=== PATIENT | female | born 1970 | race Caucasian/White ===

== ENCOUNTER 2023-06-27 10:05 | Inpatient (IN) | payer BC, OTHER ==
[~2023-06-27] VITALS: Ht 152.4 cm; Wt 79.4 kg
[2023-06-27 11:30] LABS: Urine Bacteria NONE SEEN /hpf (None Seen); Urine Blood Negative /uL (Negative); Urine Clarity Clear (Clear); Urine Mucus FEW (None Seen); Urine Protein, UAD Negative (Negative); Urine Urobilinogen Normal (Negative); Urine WBC 1 /hpf (0 - 5); Urine pH 5.5 (5.0-8.0)
[2023-06-27] MEDS: HYDROmorphone HCL 2 MG/ML VL/or syr IV ONE (11:30)
[2023-06-27 11:34] LABS: Urine Color STRAW (Yellow)
[2023-06-27 12:01] LABS: Basophils # (auto) 0 10 ^3/uL (0-0.2); Basophils % (auto) 0.6 % (0.0-2.0); Eosinophils # (auto) 0.1 10 ^3/uL (0-0.8); Eosinophils % (auto) 2.1 % (0.0-7.0); Hematocrit 40.6 % (36.0-46.0); Hemoglobin 13.5 g/dL (12.2-16.2); Lymphocytes # (auto) 1.4 10 ^3/uL (0.4-5.4); Lymphocytes % (auto) 27.2 % (10.0-50.0); Mean Corpuscular Hemoglobin 30.1 pg (28.0-32.0); Mean Corpuscular Hgb Conc. 33.3 g/dL (32.0-36.0); Mean Corpuscular Volume 90.4 fL (80.0-100.0); Monocytes # (auto) 0.4 10 ^3/uL (0-1.3); Monocytes % (auto) 7.3 % (0.0-12.0); Neutrophils # (auto) 3.3 10 ^3/uL (1.6-8.6); Neutrophils % (auto) 62.8 % (37.0-80.0); Nucleated Red Blood Cells % 0.1 %; Red Blood Cells 4.49 10^6/uL (4.0-5.20); White Blood Cell 5.3 10^3/uL (4.4-10.8)
[2023-06-27 12:13] LABS: INR 1.02 (0.9-1.15); Prothrombin Time 10.7 sec (9.3-11.8)
[2023-06-27 12:17] LABS: Alanine Aminotransferase 18 U/L (7-40); Albumin 4.5 g/dL (3.2-4.8); Alkaline Phosphatase 87 U/L (46-116); Anion Gap 7 (5-15); Aspartate Aminotransferase 10 U/L (13-40); BUN/Creatinine Ratio 10.5 (10.0-20.0); Blood Urea Nitrogen 8 mg/dL (9-23); Calcium 10.1 mg/dL (8.7-10.4); Carbon Dioxide 26 mmol/L (20-30); Chloride 105 mmol/L (98-107); Glucose 91 mg/dL (74-106); Lipase 38 U/L (12-53); Potassium 3.9 mmol/L (3.5-5.1); Sodium 138 mmol/L (136-145)
[2023-06-27 12:18] LABS: Bilirubin, Total 0.6 mg/dL (0.2-1.0); Total Protein 6.8 g/dL (5.7-8.2)
[2023-06-27] MEDS ORDERED: CYCL-611 PO (17:08)
[2023-06-27] MEDS ORDERED: MORPHINE SULFATE INJ 2 MG/ml SYRG IV PRN (17:15)
[2023-06-27] MEDS ORDERED: ONDANSETRON HCL 4 MG/2 ML VIAL IV PRN (17:15)
[2023-06-27 17:22] LABS: Triglycerides 88 mg/dL (< 150)
[2023-06-27 17:23] LABS: LDL Cholesterol 111 mg/dL (< 100)
[2023-06-27 17:24] LABS: Cholesterol 173 mg/dL (< 200); HDL Cholesterol 56 mg/dL (40-59)
[2023-06-27] MEDS ORDERED: PIPERACILLIN-TAZO 4.5GM 100 ML IV SCH (18:00)
[2023-06-27] MEDS: SODIUM CHLORIDE 0.9% 1,000 ML IV SCH (20:05)
[2023-06-27] MEDS: cefTRIAXone 1GM/50ML D5W 50 ML IV ONE (20:18)
[2023-06-27] MEDS: PANTOPRAZOLE 40 MG/10 ML VIAL INJ IV ONE (20:18)
[2023-06-27] MEDS: PIPERACILLIN-TAZO 4.5GM 100 ML IV ONE (20:34)
[2023-06-27] MEDS: ONDANSETRON HCL 4 MG/2 ML VIAL IV ONE (21:36)
[2023-06-27] MEDS: CYCLOBENZAPRINE HCL 10 MG TAB PO SCH (21:39)
[2023-06-28] VITALS (8 sets, daily range): BP systolic 95–119; BP diastolic 54–88; PULSE 64–77; RESP 16–20; TEMP 97.6–98.4; O2SAT 94–98
[2023-06-28] MEDS: HYDROcodone-ACET 5/325MG TAB PO PRN (01:17)
[2023-06-28] MEDS: PIPERACILLIN-TAZOB 3.375GM 100 ML IV SCH (04:57)
[2023-06-28 09:05] LABS: Basophils # (auto) 0 10 ^3/uL (0-0.2); Basophils % (auto) 0.7 % (0.0-2.0); Eosinophils # (auto) 0.2 10 ^3/uL (0-0.8); Eosinophils % (auto) 3.6 % (0.0-7.0); Hematocrit 38.5 % (36.0-46.0); Hemoglobin 12.6 g/dL (12.2-16.2); Lymphocytes # (auto) 1.9 10 ^3/uL (0.4-5.4); Lymphocytes % (auto) 30.5 % (10.0-50.0); Mean Corpuscular Hemoglobin 29.3 pg (28.0-32.0); Mean Corpuscular Hgb Conc. 32.7 g/dL (32.0-36.0); Mean Corpuscular Volume 89.5 fL (80.0-100.0); Monocytes # (auto) 0.5 10 ^3/uL (0-1.3); Monocytes % (auto) 8.6 % (0.0-12.0); Neutrophils # (auto) 3.5 10 ^3/uL (1.6-8.6); Neutrophils % (auto) 56.6 % (37.0-80.0); Nucleated Red Blood Cells % 0.1 %; White Blood Cell 6.1 10^3/uL (4.4-10.8)
[2023-06-28 09:35] LABS: Alanine Aminotransferase 14 U/L (7-40); Alkaline Phosphatase 75 U/L (46-116); Anion Gap 2 (5-15); Aspartate Aminotransferase 11 U/L (13-40); BUN/Creatinine Ratio 9.5 (10.0-20.0); Bilirubin, Total 0.4 mg/dL (0.2-1.0); Blood Urea Nitrogen 7 mg/dL (9-23); Carbon Dioxide 28 mmol/L (20-30); Chloride 109 mmol/L (98-107); Glucose 104 mg/dL (74-106); Potassium 3.4 mmol/L (3.5-5.1); Sodium 139 mmol/L (136-145)
[2023-06-28] MEDS: PANTOPRAZOLE 40 MG/10 ML VIAL INJ IV SCH (10:15)
[2023-06-28] MEDS ORDERED: POTASSIUM CHLORIDE 40 MEQ, LIDOCAINE 1% (LOCAL ANESTH.) 4 ML in SODIUM CHL 0.9% 250 ML IV ONE (15:00)
[2023-06-28] MEDS: POTASSIUM CHLORIDE 40 MEQ, LIDOCAINE 1% (LOCAL ANESTH.) 4 ML in SODIUM CHL 0.9% 250 ML IV ONE (15:15)
[2023-06-28] MEDS: ACETAMINOPHEN 325 MG TAB PO PRN (21:33)
[2023-06-29] VITALS (7 sets, daily range): BP systolic 105–123; BP diastolic 52–75; PULSE 52–78; RESP 16–20; TEMP 97.6–98.3; O2SAT 94–98
[2023-06-29 05:25] LABS: Basophils # (auto) 0 10 ^3/uL (0-0.2); Basophils % (auto) 0.6 % (0.0-2.0); Eosinophils # (auto) 0.2 10 ^3/uL (0-0.8); Eosinophils % (auto) 4.1 % (0.0-7.0); Hematocrit 39.2 % (36.0-46.0); Lymphocytes # (auto) 1.6 10 ^3/uL (0.4-5.4); Lymphocytes % (auto) 35.7 % (10.0-50.0); Mean Corpuscular Hemoglobin 29.8 pg (28.0-32.0); Mean Corpuscular Volume 90.4 fL (80.0-100.0); Monocytes # (auto) 0.4 10 ^3/uL (0-1.3); Monocytes % (auto) 8.1 % (0.0-12.0); Neutrophils # (auto) 2.3 10 ^3/uL (1.6-8.6); Neutrophils % (auto) 51.5 % (37.0-80.0); Red Blood Cells 4.34 10^6/uL (4.0-5.20); Red Cell Distribution Width 14.7 % (11.8-14.3); White Blood Cell 4.6 10^3/uL (4.4-10.8)
[2023-06-29 05:48] LABS: Alanine Aminotransferase 12 U/L (7-40); Albumin 3.7 g/dL (3.2-4.8); Alkaline Phosphatase 71 U/L (46-116); Anion Gap 6 (5-15); Aspartate Aminotransferase 9 U/L (13-40); BUN/Creatinine Ratio 7.3 (10.0-20.0); Bilirubin, Total 0.7 mg/dL (0.2-1.0); Blood Urea Nitrogen 6 mg/dL (9-23); Calcium 9.2 mg/dL (8.7-10.4); Carbon Dioxide 25 mmol/L (20-30); Chloride 109 mmol/L (98-107); Glucose 84 mg/dL (74-106); Magnesium 2.2 mg/dL (1.6-2.6); Potassium 3.8 mmol/L (3.5-5.1); Sodium 140 mmol/L (136-145); Total Protein 5.8 g/dL (5.7-8.2)
[2023-06-29 08:41] LABS: Hepatitis B Surface Antigen Negative (Negative)
[2023-06-29 09:02] LABS: Hepatitis C Antibody Negative (Negative)
[2023-06-29] MEDS ORDERED: DEXTROSE (50%) 50ML SYRG IV PRN (15:30)
[2023-06-29] MEDS: InsuLIN REG 1unit/0.01ml Soln (100units/ml) SC SCH (18:00)
[2023-06-29] MEDS: ACCU-CHEK COMFORT CURVE STRIP VI SCH (18:12)
[2023-06-30 05:00] VITALS: BP 113/65; PULSE 68; RESP 21; TEMP 98.2; O2SAT 97
[2023-06-30 06:40] LABS: Basophils # (auto) 0 10 ^3/uL (0-0.2); Basophils % (auto) 0.7 % (0.0-2.0); Eosinophils # (auto) 0.1 10 ^3/uL (0-0.8); Eosinophils % (auto) 2.6 % (0.0-7.0); Hematocrit 38.3 % (36.0-46.0); Hemoglobin 12.9 g/dL (12.2-16.2); Lymphocytes # (auto) 1.7 10 ^3/uL (0.4-5.4); Lymphocytes % (auto) 33.8 % (10.0-50.0); Mean Corpuscular Hemoglobin 30.1 pg (28.0-32.0); Mean Corpuscular Hgb Conc. 33.7 g/dL (32.0-36.0); Mean Corpuscular Volume 89.1 fL (80.0-100.0); Monocytes # (auto) 0.4 10 ^3/uL (0-1.3); Monocytes % (auto) 7.7 % (0.0-12.0); Neutrophils # (auto) 2.7 10 ^3/uL (1.6-8.6); Neutrophils % (auto) 55.2 % (37.0-80.0); Red Cell Distribution Width 14.4 % (11.8-14.3)
[2023-06-30 06:45] LABS: Chloride 105 mmol/L (98-107); Potassium 3.7 mmol/L (3.5-5.1); Sodium 138 mmol/L (136-145)
[2023-06-30 06:46] LABS: Anion Gap 7 (5-15); Calcium 9.5 mg/dL (8.7-10.4); Carbon Dioxide 26 mmol/L (20-30)
[2023-06-30 06:51] LABS: BUN/Creatinine Ratio 7.6 (10.0-20.0); Blood Urea Nitrogen 6 mg/dL (9-23); Glucose 70 mg/dL (74-106)
[2023-06-30 06:52] LABS: Magnesium 2.2 mg/dL (1.6-2.6)
[2023-06-30] MEDS: D5W/SOD CHL 0.45% 250 ML IV ONE (10:12)
[2023-06-30 10:30] VITALS: BP 123/70; PULSE 60; RESP 18; TEMP 97.4; O2SAT 96
[2023-06-30] MEDS: PIPERACILLIN-TAZOB 3.375GM 100 ML IV SCH (12:15)
[2023-06-30 12:31] VITALS: BP 105/61; PULSE 62; RESP 16; TEMP 97.4; O2SAT 98
[2023-06-30 13:50] VITALS: BP 105/61; PULSE 62; RESP 16; TEMP 97.9; O2SAT 98
== END 2023-06-30 14:29 | disposition home or self-care (01) | DRG 921 ==
LOC: ER 10:05 → OVERFLOW 17:06 → WEST WING 06-28 03:40
PROVIDERS: ADMIT Internal Medicine; ATTEND Internal Medicine
DX: T85.848A Pain due to other internal prosthetic devices, implants and grafts, initial encounter (principal); Y83.8 Other surgical procedures as the cause of abnormal reaction of the patient, or of later complication, without mention of misadventure at the time of the procedure; Y92.89 Other specified places as the place of occurrence of the external cause; F17.210 Nicotine dependence, cigarettes, uncomplicated; G43.909 Migraine, unspecified, not intractable, without status migrainosus; K80.20 Calculus of gallbladder without cholecystitis without obstruction; G89.29 Other chronic pain; K76.9 Liver disease, unspecified; E78.5 Hyperlipidemia, unspecified; K43.9 Ventral hernia without obstruction or gangrene; E66.01 Morbid (severe) obesity due to excess calories; Z68.34 Body mass index [BMI] 34.0-34.9, adult; Z88.8 Allergy status to other drugs, medicaments and biological substances; Z71.3 Dietary counseling and surveillance
CPT/HCPCS: 36415; 71046; 74177; 76705; 78226; 80048; 80053; 80061; 81001; 82962; 83605; 83690; 83735; 84443; 84702; 85025; 85610; 85730; 86803; 87040; 87340; C9113; G0378; J2001; J2405; J2543

== ENCOUNTER 2023-08-06 07:20 | Inpatient (IN) | payer BC ==
[2023-08-04 11:49] LABS: Basophils # (auto) 0 10 ^3/uL (0-0.2); Basophils % (auto) 0.9 % (0.0-2.0); Eosinophils # (auto) 0.1 10 ^3/uL (0-0.8); Eosinophils % (auto) 1.4 % (0.0-7.0); Hematocrit 39.4 % (36.0-46.0); Hemoglobin 13.2 g/dL (12.2-16.2); Lymphocytes # (auto) 1.4 10 ^3/uL (0.4-5.4); Lymphocytes % (auto) 27.8 % (10.0-50.0); Mean Corpuscular Hemoglobin 30.2 pg (28.0-32.0); Mean Corpuscular Hgb Conc. 33.5 g/dL (32.0-36.0); Mean Corpuscular Volume 90.1 fL (80.0-100.0); Monocytes # (auto) 0.5 10 ^3/uL (0-1.3); Monocytes % (auto) 10.4 % (0.0-12.0); Neutrophils % (auto) 59.5 % (37.0-80.0); Red Blood Cells 4.38 10^6/uL (4.0-5.20); Red Cell Distribution Width 15.1 % (11.8-14.3)
[2023-08-04 12:07] LABS: INR 0.99 (0.9-1.15); Partial Thromboplastin Time 27.3 SEC (24.5-34.5); Prothrombin Time 10.4 sec (9.3-11.8)
[2023-08-04 12:24] LABS: Alanine Aminotransferase 21 U/L (7-40); Albumin 4.5 g/dL (3.2-4.8); Alkaline Phosphatase 75 U/L (46-116); Anion Gap 3 (5-15); Aspartate Aminotransferase 15 U/L (13-40); BUN/Creatinine Ratio 10.3 (10.0-20.0); Bilirubin, Total 0.4 mg/dL (0.2-1.0); Blood Urea Nitrogen 7 mg/dL (9-23); Calcium 9.7 mg/dL (8.5-10.1); Carbon Dioxide 29 mmol/L (20-30); Chloride 106 mmol/L (98-107); Glucose 91 mg/dL (74-106); Potassium 4.2 mmol/L (3.5-5.1); Sodium 138 mmol/L (136-145); Total Protein 7.1 g/dL (5.7-8.2)
[2023-08-04 12:28] LABS: Urine Bacteria FEW /hpf (None Seen); Urine Blood Negative /uL (Negative); Urine Clarity Clear (Clear); Urine Color Colorless (Yellow); Urine Protein, UAD Negative (Negative); Urine Specific Gravity 1.005 (1.001-1.035); Urine Urobilinogen Normal (Negative); Urine WBC 1 /hpf (0 - 5); Urine pH 5.5 (5.0-9.0)
[~2023-08-06] VITALS: Ht 152.4 cm; Wt 84.1 kg
[~2023-08-06 07:20] MED LIST: CYCL-611 PO; IBUP200C11 PO
[2023-08-06] MEDS ORDERED: ONDANSETRON HCL 4 MG/2 ML VIAL ONE (08:03)
[2023-08-06] MEDS ORDERED: DexAMETHasone SOD PHOS 10MG/1ML VIAL INJ ONE (08:03)
[2023-08-06] MEDS ORDERED: PROPOFOL 10 MG/ML 20 ML IV ONE (08:03)
[2023-08-06] MEDS ORDERED: ROCURONIUM 10MG/ML 10ML VIAL IV ONE (08:03)
[2023-08-06] MEDS ORDERED: KETOROLAC TROMETH 30 MG/ML 1ML VIAL ONE (08:03)
[2023-08-06] MEDS ORDERED: GLYCOPYRROLATE 0.2 MG/ML 1ML VIAL ONE (08:03)
[2023-08-06] MEDS ORDERED: fentaNYL CITRATE 100 MCG/2 ML VL ONE (08:04)
[2023-08-06] MEDS ORDERED: SUGAMMADEX 200mg/2ml Vial (100MG/ML) IV ONE (08:04)
[2023-08-06] MEDS: ceFAZolin 2 GM/D5W50ml 50 ML IV ONE (08:10)
[2023-08-06] MEDS: ACETAMINOPHEN IV 100 ML IV ONE (08:37)
[2023-08-06] MEDS: CELECOXIB 100 MG CAP ONE (08:41)
[2023-08-06] MEDS: GABAPENTIN 400 MG CAP ONE (08:41)
[2023-08-06] MEDS: ACETAMINOPHEN IV 1000 MG/100ML (10MG/ML) IV ONE (08:45)
[2023-08-06] MEDS: LIDOCAINE W/ EPINEPHRINE 1% 20ML VIAL ONE (08:46)
[2023-08-06] MEDS: BUPIVACAINE 0.25% INJ 50ML VIAL ONE (08:46)
[2023-08-06] MEDS: CELECOXIB 100 MG CAP PO ONE (08:49)
[2023-08-06] MEDS: GABAPENTIN 400 MG CAP PO ONE (08:49)
[2023-08-06] MEDS ORDERED: LIDOCAINE HCL 2% TOP JELLY 5ML TOP ONE (08:51)
[2023-08-06] MEDS ORDERED: LIDOCAINE 2% (LOCAL ANESTH.) PF 5ml SDV ONE (08:51)
[2023-08-06] MEDS ORDERED: KETAMINE 50mg/ML 1ml syringe ONE (08:53)
[2023-08-06 10:24] VITALS: RESP 16; O2SAT 98
[2023-08-06] MEDS ORDERED: NALOXONE HCL 0.4 MG/ML VIAL IV PRN (10:30)
[2023-08-06] MEDS ORDERED: fentaNYL CITRATE 100 MCG/2 ML VL IV PRN (10:30)
[2023-08-06] MEDS ORDERED: LABETALOL HCL 5 MG/ML 4ML SYRINGE IV PRN (10:30)
[2023-08-06] MEDS ORDERED: ePHEDrine SULFATE 50 MG/ML AMP IV PRN (10:30)
[2023-08-06] MEDS ORDERED: HYDROmorphone HCL 2 MG/ML VL/or syr IV PRN ×2 (10:30)
[2023-08-06] MEDS ORDERED: ONDANSETRON HCL 4 MG/2 ML VIAL IV PRN (10:30)
[2023-08-06] MEDS ORDERED: hydrALAZINE HCL 20 MG/ML VL IV PRN (10:30)
[2023-08-06] MEDS ORDERED: FLUMAZENIL 0.1 MG/ML INJ 10ML MDV IV PRN (10:30)
[2023-08-06] MEDS: oxyCODONE HCL 5MG TAB PO PRN (11:15)
[2023-08-06] MEDS: ONDANSETRON HCL 4 MG/2 ML VIAL IV PRN (11:20)
[2023-08-06] MEDS ORDERED: MORPHINE SULFATE INJ 2 MG/ml SYRG IV PRN (11:30)
[2023-08-06] MEDS ORDERED: NITROGLYCERIN 0.4 MG SL TAB SL PRN (11:30)
[2023-08-06] MEDS: metroNIDAZOLE 500MG/100ML 100 ML IV SCH (13:51)
[2023-08-06 17:28] VITALS: PULSE 69; RESP 18; O2SAT 95
[2023-08-06 17:35] VITALS: BP 121/70; PULSE 69; RESP 18; TEMP 97.4; O2SAT 95
[2023-08-06 20:00] VITALS: PULSE 68; RESP 16
[2023-08-06] MEDS: SODIUM CHLORIDE 0.9% 1,000 ML IV SCH (20:22)
[2023-08-06 22:00] VITALS: BP 104/54; PULSE 89; RESP 20; TEMP 97.9; O2SAT 93
[2023-08-07 01:00] VITALS: BP 104/53; PULSE 89; RESP 20; TEMP 97.7; O2SAT 93
[2023-08-07] MEDS: HYDROcodone-ACET 5/325MG TAB PO PRN (03:48)
[2023-08-07 05:00] VITALS: BP 104/61; PULSE 90; RESP 18; TEMP 92; O2SAT 92
[2023-08-07 05:20] LABS: Basophils # (auto) 0 10 ^3/uL (0-0.2); Basophils % (auto) 0.1 % (0.0-2.0); Eosinophils # (auto) 0 10 ^3/uL (0-0.8); Hematocrit 36.3 % (36.0-46.0); Hemoglobin 12.1 g/dL (12.2-16.2); Lymphocytes # (auto) 0.8 10 ^3/uL (0.4-5.4); Lymphocytes % (auto) 6.3 % (10.0-50.0); Mean Corpuscular Hemoglobin 29.8 pg (28.0-32.0); Mean Corpuscular Hgb Conc. 33.2 g/dL (32.0-36.0); Mean Corpuscular Volume 89.7 fL (80.0-100.0); Monocytes # (auto) 0.9 10 ^3/uL (0-1.3); Neutrophils # (auto) 10.7 10 ^3/uL (1.6-8.6); Neutrophils % (auto) 86.6 % (37.0-80.0); Red Blood Cells 4.05 10^6/uL (4.0-5.20); Red Cell Distribution Width 15.2 % (11.8-14.3); White Blood Cell 12.3 10^3/uL (4.4-10.8)
[2023-08-07 05:39] LABS: Alanine Aminotransferase 17 U/L (7-40); Albumin 3.9 g/dL (3.2-4.8); Alkaline Phosphatase 67 U/L (46-116); Anion Gap 2 (5-15); Aspartate Aminotransferase 10 U/L (13-40); BUN/Creatinine Ratio 15.9 (10.0-20.0); Blood Urea Nitrogen 11 mg/dL (9-23); Calcium 9.4 mg/dL (8.7-10.4); Carbon Dioxide 26 mmol/L (20-30); Chloride 108 mmol/L (98-107); Glucose 172 mg/dL (74-106); Potassium 4.2 mmol/L (3.5-5.1); Sodium 136 mmol/L (136-145)
[2023-08-07 05:40] LABS: Bilirubin, Total 0.3 mg/dL (0.2-1.0)
[2023-08-07 08:00] VITALS: PULSE 68; PULSE 83; RESP 16
[2023-08-07 09:00] VITALS: BP 118/65; PULSE 65; RESP 16; TEMP 97.5; O2SAT 99
[2023-08-07] MEDS ORDERED: IBUP1TAB5 PO (10:50)
[2023-08-07] MEDS ORDERED: HYDR-4902 PO (10:50)
[2023-08-07] MEDS ORDERED: CYCL-837 PO (10:50)
[2023-08-07] MEDS ORDERED: AUG875T PO (10:50)
[2023-08-07 15:31] VITALS: BP 121/70; PULSE 69; RESP 18; TEMP 36.4; O2SAT 95
== END 2023-08-07 16:18 | disposition home or self-care (01) | DRG 410 ==
LOC: SUR 07:20 → OVERFLOW 11:25 → CENTRAL 17:13
PROVIDERS: ADMIT Internal Medicine; ATTEND Internal Medicine Geriatric Medicine
PROC: 0FP440Z Removal of Drainage Device from Gallbladder, Percutaneous Endoscopic Approach (ICD-10-PCS; 2023-08-06)
PROC: 0FT44ZZ Resection of Gallbladder, Percutaneous Endoscopic Approach (ICD-10-PCS; principal; 2023-08-06 09:05)
DX: K80.12 Calculus of gallbladder with acute and chronic cholecystitis without obstruction (principal); E66.9 Obesity, unspecified; Z93.3 Colostomy status; Z88.8 Allergy status to other drugs, medicaments and biological substances; G43.909 Migraine, unspecified, not intractable, without status migrainosus; Z68.36 Body mass index [BMI] 36.0-36.9, adult
CPT/HCPCS: 36415; 80053; 81001; 82247; 85025; 85610; 85730; 86850; 86900; 86901; G0378; J0131; J1100; J1885; J2001; J2405; J2704; J3490

== ENCOUNTER 2024-10-26 12:24 | Emergency (ER) | payer BC ==
[~2024-10-26] VITALS: Ht 152.4 cm; Wt 77.0 kg
[~2024-10-26 12:24] MED LIST changes: +AUG875T PO; +CYCL-837 PO; +HYDR-4902 PO; +IBUP1TAB5 PO
[2024-10-26 12:42] VITALS: TEMP 99
[2024-10-26] MEDS ORDERED: CIPR-173 PO (13:40)
[2024-10-26] MEDS ORDERED: AUG875T PO (13:40)
[2024-10-26] MEDS ORDERED: CETI5TAB6 PO (13:40)
[2024-10-26] MEDS ORDERED: IBUP1TAB5 PO (13:40)
--- NOTE | 2024-10-26 13:40 | ED.PDOC ---
Eye-HPI HPI Comments 54y F who presents to the ED for chief complaint of ear pain. Pt states she has been having R ear pain for the past 6 months. Pt states she was seen 2x at urgent care recently and states she was given cetrizine and antibiotics with no improvement. Pt has been having associated intermittent chills and fatigue. Pt otherwise has noted stable vitals. Pt states she has upcoming appt with PCP on November 02. Pt denies any other symptoms at this time. Denies blunt trauma (hand blow to the ear, fall, direct hit) Denies penetrating trauma (Q-tip use, match-stick, gunshot wound, welding spark) Denies ear trauma Denies barotrauma Denies blast injury Denies air travel Denies scuba diving Denies hearing loss Denies persistent ringing in the ear Denies fever chills night sweats unintentional weight loss Denies nausea vomiting severe headache or recent vision changes Chief Complaint: Earache Time Seen by MD: 12:50 Primary Care Provider: JESSI Kelly Notes: Medications, Allergies Allergies: Coded Allergies: Prochlorperazine (Verified Allergy, Unknown, 06/27/23) Home Meds Active Scripts Cetirizine Hcl (Cetirizine Hcl) 5 Mg Tab, 10 MG PO DAILY for 10 Days, #20 TAB 0 Refills Prov:CED IGLESIAS NP 10/26/24 Ibuprofen Micronized (Ibuprofen) 600 Mg Tab, 600 MG PO TIDWM for 10 Days, #30 TAB 0 Refills Prov:CED IGLESIAS NP 10/26/24 Amoxicillin & Pot Clavulanate (AUGMENTIN TABLET) 875 Mg Tb, 875 MG PO BID for 5 Days, #10 TAB 0 Refills Prov:CED IGLESIAS NP 10/26/24 Ciprofloxacin Hcl (Cipro) 500 Mg Tab, 1 TAB PO BID for 5 Days, #10 TAB 0 Refills Prov:CED IGLESIAS NP 10/26/24 Amoxicillin & Pot Clavulanate (AUGMENTIN TABLET) 875 Mg Tb, 875 MG PO BID, #14 TAB Prov:RITESH PARSON MD 08/07/23 Ibuprofen Micronized (Ibuprofen) 600 Mg Tab, 600 MG PO Q6HP PRN, #30 TAB Prov:RITESH PARSON MD 08/07/23 Cyclobenzaprine Hcl (Cyclobenzaprine Hcl) 5 Mg Tab, 1 TAB PO TID PRN, #30 TAB Prov:RITESH PARSON MD 08/07/23 Hydrocodone-Acetaminophen (Hydrocodone Bitartrate/AC 5-325 mg) 1 Tab Tab, 1 TAB PO Q6HP PRN, #20 TAB Prov:RITESH PARSON MD 08/07/23 Reported Medications Ibuprofen (Advil Migraine) 200 Mg Cap, 200 MG PO PRN, CAP 08/04/23 Cyclobenzaprine HCl (Cyclobenzaprine Hydrochlo) 10 Mg Tab, 1 TAB PO TIDP 06/27/23 Information Source: Patient Mode of Arrival: Ambulatory Past Medical History PAST MEDICAL HISTORY: Denies 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 SEARCH History Family History Family History: Unknown Social History Smoker: Cigarettes, Less Than 1 Pack/Day Alcohol: Denies ETOH Use Drugs: Denies Drug Use Lives In: Home All Other Systems: Reviewed and Negative (see HPI) Physical Exam General Appearance: No Apparent Distress, Normal HEENT: Normal ENT Inspection, Pharynx Normal, TMs Normal Neck: Full Range of Motion, Non-Tender, Normal, Normal Inspection Respiratory: Chest Non-Tender, Lungs Clear, No Accessory Muscle Use, No Respiratory Distress, Normal Breath Sounds Cardiovascular: No Edema, No JVD, No Murmur, No Gallop, Normal Peripheral Pulses, Regular Rate/Rhythm Breast Exam: Deferred Gastrointestinal: No Organomegaly, Non Tender, No Pulsatile Mass, Normal Bowel Sounds, Soft Genitalia: Deferred Pelvic: Deferred Rectal: Deferred Extremities: No calf tenderness, Normal capillary refill, Normal inspection, Normal range of motion, Non-tender, No pedal edema Musculoskeletal : Apperance: Normal Neurologic: Alert, president educational institution II-XII nml as Tested, No Motor Deficits, Normal Affect, Normal Mood, No Sensory Deficits Cerebellar Function: Normal Reflexes: Normal Skin: Dry, Normal Color, Warm Lymphatic: No Adenopathy Was a procedure done? Was a procedure done?: No EENT DIFF Ear: Otitis Externa, Otitis Media, Pharyngitis, Sinusitis X-Ray, Labs, Meds, VS Vital Signs Date Time Temp Pulse Resp B/P (MAP) Pulse Ox O2 Delivery O2 Flow Rate FiO2 10/26/24 13:47 77 18 94 Room Air 10/26/24 13:47 96 18 114/76 (89) 94 10/26/24 12:42 99.0 87 18 144/72 (96) 97 99.0 Current Medications Medications (Trade) Dose Ordered Sig/Vignesh Route Start Time Stop Time Status Last Admin Ketorolac Tromethamine (Toradol Injection) 30 mg ONCE ONCE IM 10/26/24 13:45 10/26/24 13:46 DC 10/26/24 13:52 X-Ray, Labs, Meds, VS Comment 54y F who presents to the ED for chief complaint of ear pain. Patient arrives alert and oriented, ABC's intact, afebrile, vital signs stable, saturating well in room air Peripheral IV insertion+ labs were ordered. CBC was ordered to exclude anemia, blood loss, or infection. BMP was ordered to exclude electrolyte abnormalities, renal failure, dehydration, hyperglycemia CMP was ordered to exclude electrolyte abnormalities, renal failure, dehydration, hyperglycemia and/or liver enzyme abnormalities. PT and INR were ordered to rule out coagulopathy. Troponin and BNP were ordered to rule out myocardial infarction, or congestive heart failure. Urinalysis was ordered to rule out UTI or hematuria. Diagnostic imaging ordered by me and results interpreted by radiology : Labs in the ED showed (pertinent+ and then pertinent-) Patient was given:_. Tolerated medications with no adverse reaction. Additional MDM Review of External, Non-ED records: External records reviewed. Discussion with independent historian (EMS, family) history obtained from the patient/parents (if applicable) at bedside Chronic conditions affecting care: None Social determinants of health affecting care: None Consideration of admission (observation or admission): I considered escalation of care to admission for this patient, however given the reassuring workup, the patient is safe for outpatient management. Discussion with the Radiology: No Tests considered but not performed: Prescription medication considered but not given: 12 lead EKG interpretation: Patient Education/Counseling: Diagnosis, Treatment Family Education/Counseling: No Family Present SEPSIS Sepsis Screen Date sepsis recognized/suspect: Oct 26, 2024 Time Sepsis recognized/suspect: 1242 Recent Procedure: No On Antibiotic Therapy: No Respiratory Rate >20: No Heart Rate >90: No Temp<36 C (96.8 F) or >38.3 C: No SBP <90 or MAP <65 mmHG: No New Acute Mental Status Change: No Is the patient on CPAP, BIPAP,: No Vital Signs Date Time Temp Pulse Resp B/P (MAP) Pulse Ox O2 Delivery O2 Flow Rate FiO2 10/26/24 13:47 77 18 94 Room Air 10/26/24 13:47 96 18 114/76 (89) 94 10/26/24 12:42 99.0 87 18 144/72 (96) 97 99.0 Medications Medications Dose Ordered Sig/Vignesh Route Start Time Stop Time Status Last Admin Dose Admin Ketorolac Tromethamine 30 mg ONCE ONCE IM 10/26/24 13:45 10/26/24 13:46 DC 10/26/24 13:52 Departure 1 Departure Time of Disposition: 13:39 Impression: Primary Impression: Otalgia of right ear Disposition: HOME / SELF CARE / HOMELESS Condition: Stable e-Prescriptions Cetirizine Hcl (Cetirizine Hcl) 5 Mg Tab 10 MG PO DAILY for 10 Days, #20 TAB 0 Refills Prov: CED IGLESIAS NP 10/26/24 Ibuprofen Micronized (Ibuprofen) 600 Mg Tab 600 MG PO TIDWM for 10 Days, #30 TAB 0 Refills Prov: CED IGLESIAS NP 10/26/24 Amoxicillin & Pot Clavulanate (AUGMENTIN TABLET) 875 Mg Tb 875 MG PO BID for 5 Days, #10 TAB 0 Refills Prov: CED IGLESIAS NP 10/26/24 Ciprofloxacin Hcl (Cipro) 500 Mg Tab 1 TAB PO BID for 5 Days, #10 TAB 0 Refills Prov: CED IGLESIAS NP 10/26/24 Critical Care Note Critical Care Time?: No Stability Stability form required: No Heart Score Heart Score: Heart Score Response (Comments) Value History N/A 0 EKG N/A 0 Age N/A 0 Risk Factors N/A 0 Troponin N/A 0 Total 0 I personally scribed for CED IGLESIAS NP ([email or web address]) on 10/26/24 at 14:27. Lisbeth ctronically submitted by Pratima JACQUES). CED IGLESIAS NP Oct 26, 2024 13:40
[2024-10-26 13:47] VITALS: BP 114/76; PULSE 77; RESP 18; O2SAT 94
[2024-10-26] MEDS: KETOROLAC TROMETH 30 MG/ML 1ML VIAL IM ONE (13:52)
== END 2024-10-26 13:54 | disposition home or self-care (01) ==
LOC: ER 12:24
DX: H92.01 Otalgia, right ear (principal); F17.210 Nicotine dependence, cigarettes, uncomplicated
CPT/HCPCS: 96372; 99283; J1885

== ENCOUNTER 2024-12-05 09:23 | Outpatient (CLI) | payer BC ==
[~2024-12-05 09:23] MED LIST changes: +CETI5TAB6 PO; +CIPR-173 PO
[2024-12-05 09:53] LABS: Urine Protein, UAD Negative (Negative)
[2024-12-05 09:55] LABS: Hematocrit 40.5 % (36.0-46.0); Hemoglobin 13.8 g/dL (12.2-16.2); Mean Corpuscular Hemoglobin 30.4 pg (28.0-32.0); Mean Corpuscular Volume 89.1 fL (80.0-100.0); Nucleated Red Blood Cells % 0.1 %
[2024-12-05 10:09] LABS: Alanine Aminotransferase 15 U/L (7-40); Albumin 4.6 g/dL (3.2-4.8); Alkaline Phosphatase 64 U/L (46-116); Anion Gap 7 (5-15); BUN/Creatinine Ratio 16.7 (10.0-20.0); Bilirubin, Total 0.4 mg/dL (0.2-1.0); Blood Urea Nitrogen 13 mg/dL (9-23); Calcium 9.6 mg/dL (8.7-10.4); Carbon Dioxide 29 mmol/L (20-31); Chloride 105 mmol/L (98-107); Cholesterol 150 mg/dL (< 200); Glucose 92 mg/dL (74-106); HDL Cholesterol 52 mg/dL (40-59); Potassium 4.2 mmol/L (3.5-5.1); Sodium 141 mmol/L (136-145); Total Protein 6.6 g/dL (5.7-8.2); Triglycerides 62 mg/dL (< 150)
== END 2024-12-05 17:00 | disposition home or self-care (01) ==
LOC: LAB 09:23
PROVIDERS: ATTEND Nurse Practitioner
DX: I10 Essential (primary) hypertension (principal); E78.5 Hyperlipidemia, unspecified; R73.9 Hyperglycemia, unspecified
CPT/HCPCS: 36415; 80053; 80061; 81001; 83036; 84443; 85025

== ENCOUNTER 2025-01-15 19:49 | Emergency (ER) | payer BC ==
[~2025-01-15] VITALS: Ht 149.9 cm; Wt 76.2 kg
[2025-01-15 19:50] VITALS: BP 156/106; PULSE 104; RESP 20; TEMP 98.2; O2SAT 99
[2025-01-15] MEDS ORDERED: HYDROcodone-ACET 5/325MG TAB PO ONE (20:00)
--- NOTE | 2025-01-15 20:09 | ED.PDOC ---
History of Present Illness HPI Comments 54 y/o obese F presents with c/c of nonradiating, lower back pain. Endorsement of onset after bending forward to feed her dog and hearing a 'pop[ from her back. No significant medical or surgical history relevant to her back. Denial of any numbness, tingling, weakness, or further associated symptoms. DENIES NUMBNESS, WEAKNESS, LOSS OF BOWEL BLADDER CONTROL, OR SADDLE ANESTHESIA. Chief Complaint: Back Pain Time Seen by MD: 20:00 Primary Care Provider: JESSI Reviewed Notes: Nurses Notes, Medications, Allergies Allergies: Coded Allergies: Prochlorperazine (Verified Allergy, Unknown, 06/27/23) Home Meds Active Scripts Methylprednisolone (Medrol Dosepak) 4 Mg Wero, 4 MG PO UD for 6 Days, #21 TAB UAD Prov:NOEMI GALLOWAY MARINE GEAR KEEPER 01/15/25 Cetirizine Hcl (Cetirizine Hcl) 5 Mg Tab, 10 MG PO DAILY for 10 Days, #20 TAB 0 Refills Prov:CED IGLESIAS NP 10/26/24 Ibuprofen Micronized (Ibuprofen) 600 Mg Tab, 600 MG PO TIDWM for 10 Days, #30 TAB 0 Refills Prov:CED IGLESIAS GERIATRIC SOCIAL WORKER 10/26/24 Amoxicillin & Pot Clavulanate (AUGMENTIN TABLET) 875 Mg Tb, 875 MG PO BID for 5 Days, #10 TAB 0 Refills Prov:CED IGLESIAS GERIATRIC SOCIAL WORKER 10/26/24 Ciprofloxacin Hcl (Cipro) 500 Mg Tab, 1 TAB PO BID for 5 Days, #10 TAB 0 Refills Prov:CED IGLESIAS NP 10/26/24 Amoxicillin & Pot Clavulanate (AUGMENTIN TABLET) 875 Mg Tb, 875 MG PO BID, #14 TAB Prov:RITESH PARSON MD 08/07/23 Ibuprofen Micronized (Ibuprofen) 600 Mg Tab, 600 MG PO Q6HP PRN, #30 TAB Prov:RITESH PARSON MD 08/07/23 Cyclobenzaprine Hcl (Cyclobenzaprine Hcl) 5 Mg Tab, 1 TAB PO TID PRN, #30 TAB Prov:RITESH PARSON MD 08/07/23 Hydrocodone-Acetaminophen (Hydrocodone Bitartrate/AC 5-325 mg) 1 Tab Tab, 1 TAB PO Q6HP PRN, #20 TAB Prov:RITESH PARSON MD 08/07/23 Reported Medications Ibuprofen (Advil Migraine) 200 Mg Cap, 200 MG PO PRN, CAP 08/04/23 Cyclobenzaprine HCl (Cyclobenzaprine Hydrochlo) 10 Mg Tab, 1 TAB PO TIDP 06/27/23 Information Source: Patient Mode of Arrival: Ambulatory Severity: Moderate Timing: Hours Duration: Since onset Prehospital treatment: None Past Medical History PAST MEDICAL HISTORY: Denies 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 MACHINE OPERATOR History Family History Family History: Unknown Social History Smoker: Cigarettes, Less Than 1 Pack/Day Alcohol: Denies ETOH Use Drugs: Denies Drug Use Lives In: Home All Other Systems: Reviewed and Negative (Comprehensive review of systems are negative unless stated in HPI) Physical Exam General Appearance: No Apparent Distress, Normal HEENT: Pharynx Normal Neck: Full Range of Motion, Non-Tender Respiratory: Lungs Clear, No Respiratory Distress, Normal Breath Sounds Cardiovascular: No Murmur, Normal Peripheral Pulses, Regular Rate/Rhythm Breast Exam: Deferred Gastrointestinal: Non Tender, Soft Genitalia: Deferred Pelvic: Deferred Rectal: Deferred Extremities: No calf tenderness, Normal capillary refill, Normal range of motion, No pedal edema Musculoskeletal : Location: Left Extremity Location: Back Apperance: Normal Neurologic: Alert, No Motor Deficits, Normal Affect, Normal Mood, No Sensory Deficits Cerebellar Function: Normal Reflexes: Normal Skin: Dry, Normal Color, Warm Lymphatic: No Adenopathy Was a procedure done? Was a procedure done?: No Differential Dx Considerations may include: musculoskeletal pain, sprain, contusions, fracture, dislocation, among others X-Ray, Labs, Meds, VS Vital Signs Date Time Temp Pulse Resp B/P (MAP) Pulse Ox O2 Delivery O2 Flow Rate FiO2 01/15/25 19:50 98.2 104 20 156/106 99 98.2 Current Medications Medications (Trade) Dose Ordered Sig/Vignesh Route Start Time Stop Time Status Last Admin Ketorolac Tromethamine (Toradol Injection) 60 mg ONCE ONCE IM 01/15/25 20:00 01/15/25 20:28 DC 01/15/25 23:13 Dexamethasone Sodium Phosphate (Decadron Injection) 10 mg ONCE ONCE IM 01/15/25 20:00 01/15/25 20:28 DC 01/15/25 23:12 [facility] [id number] [place] [address] Ph: [phone] DIAGNOSTIC IMAGING Diagnostic Imaging Report : [id number] Signed PATIENT: MIKE FREGOSO ACCT: [id number] UNIT: [id number] : 1970 LOC: ER ROOM / BED: / AGE / SEX: 54 / F ADM STATUS: REG ER SERVICE 54 ORDERING PHYSICIAN: NOEMI GALLOWAY PROCEDURE(s): LUMB2 - LUMBAR SPINE 3 VIEW REASON: low back hyperflexed injury ORDER NUMBER(s): [id number], ACCESSION NUMBER(s): [id number] EXAM: XY LUMBAR SPINE 3 VIEW INDICATION: low back hyperflexed injury TECHNIQUE: 3 views of the lumbar spine COMPARISON: None FINDINGS/IMPRESSION: No radiographic evidence of an acute osseous abnormality. There is no acute fracture, osseous malalignment, or aggressive focal osseous lesion. Mild-to-m oderate stool burden. Correlate surgical clip in the pelvis. Relative bony foraminal narrowing at L5-S1 ATED BY: GREGORIO DURHAM MD DICTATED DATE/TIME: 01/15/252046 SIGNED BY: GREGORIO DURHAM MD SIGNED DATE/TIME: 01/15/252046 CC: X-Ray, Labs, Meds, VS Comment FINDINGS/IMPRESSION: No radiographic evidence of an acute osseous abnormality. There is no acute fracture, osseous malalignment, or aggressive focal osseous lesion. Hema-tr-sdbpmzru stool burden. Correlate surgical clip in the pelvis. Relative bony foraminal narrowing at L5-S1 LIKELY SECONDARY TO MUSCLE STRAIN. PATIENT GIVEN TORADOL AND DECADRON REFUSED NORCO DUE TO WORKING FOR [employer]. REPORTS IMPROVEMENT IN PAIN AND FUNCTION REQUESTING DISCHARGE AT THIS TIME SCRIPT TRIAL OF MEDROL DOSEPAK ADVISED TAKE MEDICATION PRESCRIBED SIDE EFFECTS DISCUSSED. ADVISED TO FOLLOW UP WITH HER PCP IN 2-3 DAYS NECESSARY CONSIDER FURTHER IMAGING SUCH MRI OR PHYSICAL THERAPY SYMPTOMS PERSIST. ER RETURN PRECAUTIONS GIVEN PATIENT INDICATES UNDERSTANDING AGREES WITH DISCHARGE PLAN OF CARE. Time of 1ST Reevaluation: 20:30 Reevaluation 1ST: Unchanged Time of 2ND Reevaluation: 21:31 Reevaluation 2ND: Improved Patient Education/Counseling: Diagnosis, Treatment, Need For Follow Up Family Education/Counseling: No Family Present SEPSIS Sepsis Screen Date sepsis recognized/suspect: Jan 15, 2025 Time Sepsis recognized/suspect: 1949 Recent Procedure: No Respiratory Rate >20: No Heart Rate >90: Yes Temp<36 C (96.8 F) or >38.3 C: No SBP <90 or MAP <65 mmHG: No New Acute Mental Status Change: No Is the patient on CPAP, BIPAP,: No Physician Orders Lumbar Spine 3 View (01/15/25 19:55) Vital Signs Date Time Temp Pulse Resp B/P (MAP) Pulse Ox O2 Delivery O2 Flow Rate FiO2 01/15/25 19:50 98.2 104 20 156/106 99 98.2 Medications Medications Dose Ordered Sig/Vignesh Route Start Time Stop Time Status Last Admin Dose Admin Dexamethasone Sodium Phosphate 10 mg ONCE ONCE IM 01/15/25 20:00 01/15/25 20:28 DC 01/15/25 23:12 Ketorolac Tromethamine 60 mg ONCE ONCE IM 01/15/25 20:00 01/15/25 20:28 DC 01/15/25 23:13 Departure 1 Departure Time of Disposition: 21:31 Impression: Primary Impression: Lumbar sprain Qualified Codes: S33.5XXA - Sprain of ligaments of lumbar spine, initial encounter Disposition: HOME / SELF CARE / HOMELESS Condition: Stable e-Prescriptions Methylprednisolone (Medrol Dosepak) 4 Mg Wero 4 MG PO UD for 6 Days, #21 TAB UAD Prov: NOEMI GALLOWAY 01/15/25 Discharged With: Self Critical Care Note Critical Care Time?: No Stability Stability form required: No Heart Score Heart Score: Heart Score Response (Comments) Value History N/A 0 EKG N/A 0 Age N/A 0 Risk Factors N/A 0 Troponin N/A 0 Total 0 I personally scribed for ER ([email or web address]) on 01/15/25 at 20:09. Electronically submitted by Des Love ([email or web address]). I personally scribed for ER ([email or web address]) on 01/15/25 at 21:07. Electronically submitted by Des Love ([email or web address]). ER Jan 15, 2025 20:09 NOEMI GALLOWAY MARINE GEAR KEEPER Jan 15, 2025 21:18
--- NOTE | 2025-01-15 20:49 | DVH ---
EXAM: XY LUMBAR SPINE 3 VIEW INDICATION: low back hyperflexed injury TECHNIQUE: 3 views of the lumbar spine COMPARISON: None FINDINGS/IMPRESSION: No radiographic evidence of an acute osseous abnormality. There is no acute fracture, osseous malalig nment, or aggressive focal osseous lesion. Glar-oj-ufqojyjf stool burden. Correlate surgical clip in the pelvis. Relative bony foraminal narrowing at L5-S1
[2025-01-15] MEDS ORDERED: METH4PAK PO (21:32)
[2025-01-15] MEDS: KETOROLAC TROMETH 60MG/2ML VIAL IM ONE (23:13)
== END 2025-01-15 23:17 | disposition home or self-care (01) ==
LOC: ER 19:49
DX: S33.5XXA Sprain of ligaments of lumbar spine, initial encounter (principal); S39.92XA Unspecified injury of lower back, initial encounter; F17.210 Nicotine dependence, cigarettes, uncomplicated; E66.9 Obesity, unspecified; X58.XXXA Exposure to other specified factors, initial encounter; Y93.89 Activity, other specified; Y92.89 Other specified places as the place of occurrence of the external cause; Y99.8 Other external cause status
CPT/HCPCS: 72100; 96372; 99284; J1100; J1885